=== PATIENT | male | born 1970 | race Two or more races ===

== ENCOUNTER → 2022-09-10 | Outpatient (CLI) | payer OTHER | LOC: RAD 10:46 | PROVIDERS: ATTEND Internal Medicine | DX: M54.50 Low back pain, unspecified (principal) | CPT/HCPCS: 72110 ==

== ENCOUNTER → 2022-09-21 | Outpatient (CLI) | payer OTHER | LOC: MRI 10:58 | PROVIDERS: ATTEND Internal Medicine | DX: M43.07 Spondylolysis, lumbosacral region (principal) | CPT/HCPCS: 72148 ==